=== PATIENT | female | born 1960 | race Caucasian/White ===

== ENCOUNTER 2017-01-16 08:00 | Observation (INO) ==
[2017-01-16 08:26] VITALS: BMI 32.2
[2017-01-16] MEDS: FLECAINIDE 50 MG TABLET PO SCH ×2 (10:15→21:36)
[2017-01-16] MEDS: **POM**ASPIRIN 81 MG CHEWABLE TABLET PO SCH (10:16)
[2017-01-16] MEDS: PROPRANOLOL 120 MG PO SCH (10:16)
[2017-01-16] MEDS: LURASIDONE 40 MG PO SCH (10:17)
[2017-01-16] MEDS: ALPRAZolam 0.25 MG TABLET PO SCH ×3 (10:29→21:37)
[2017-01-16] MEDS ORDERED: ALPRAZolam 0.25 MG TABLET PO SCH (12:00)
[2017-01-16] MEDS ORDERED: PROMETHAZINE 25 MG INJECTION IM PRN ×2 (12:26→13:00)
[2017-01-16] MEDS: NALBUPHINE 10 MG/ML INJECTION IVP PRN (12:50)
[2017-01-16] MEDS ORDERED: ACETAMINOPHEN 325 MG TABLET PO PRN (15:53)
--- NOTE | 2017-01-16 18:43 | Cardiology History & Physical ---
History of Present Illness Chief complaint: Palpitations HPI: This is a 56-year-old female who is here today for scheduled AAT with flecainide after being seen in the office on 01/02/2017 with c/o increased chest palpitations and CP. She states that palpitations began 6 months ago. They occur intermittently. Generally last 20 minutes. At the time she rated the symptom as severe and that it had worsened since prior visits. She described the palpations as a rapid heart beat. She states migraines make them worse.Nothing make them better. The palpations are associated with dyspnea and syncope. She also c/o chest discomfort. The pain began on . It occurs 1 time. It generally lasts 20 minutes. The patient rated as moderate. This had improved since prior visits. The patient described the pain as pressure. There are no aggravating factors. The pain is relieved with rest. The discomfort occurs at rest. It is associated with dyspnea and nausea. Pertinent negatives include diaphoresis. On admission today patient denies any palpitations, CP, N/V , SOA and/or diaphoresis. States her only pain is her migraine. Review of Systems All systems: reviewed and no additional remarkable complaints except as stated Review of systems: Headache PFSH Patient Stated Medical History Migraine Yes Glaucoma Yes: surgery Cardiac Arrhythmia Yes Hypertension Yes Other Musculoskeletal Yes: 2 rods in back Depression Yes Post Traumatic Stress Disorder Yes Other Behavioral Health Yes: agoraphobia [facility] Medical History (Last Updated 12/20/16 @ 10:56 by Faustina Dickens) Agoraphobia (Chronic Medical) Anxiety (Chronic Medical) Major depressive disorder (Chronic Medical) Migraine (Chronic Medical) PTSD (post-traumatic stress disorder) (Chronic Medical) Tachycardia (Chronic Medical) Surgical History: 1. Appendectomy: 1976. 2. Left carpal sujata release: 1989. 3. Hysterectomy: 1992. 4. Lumbar spine fusion: 2009. 5. Left TKR: 2010. 6. Right knee scope: 2013 Family History: Family History (Last Reviewed 12/20/16 @ 10:59 by Faustina Dickens) Mother Heart disease Unknown Cancer - Social History Smoking status: Light tobacco smoker Substance use type: does not use Alcohol intake frequency: does not drink Housing: house Household members: spouse service: No Does patient use chewing tobacco?: No Current residence: Apartment/Private Home Medications Home Medications Medication Instructions Recorded Confirmed Type alprazolam 0.25 mg tablet 0.25 mg PO 0900,1500,2100 tab 12/20/16 01/16/17 History lurasidone 40 mg tablet 40 mg PO DAILY tab 12/20/16 01/16/17 History propranolol ER 120 mg capsule,24 120 mg PO DAILY cap 12/20/16 01/16/17 History hr,extended release trazodone 50 mg tablet 100 mg PO HS #60 12/20/16 01/16/17 History Aspirin 1 tab PO DAILY 01/16/17 01/16/17 History LORazepam [Ativan] 1 mg IM DAILY PRN 01/16/17 01/16/17 History Nalbuphine Inj [Nubain] 20 mg IM DAILY PRN 01/16/17 01/16/17 History Promethazine Inj [Phenergan Inj] 25 mg IM DAILY PRN 01/16/17 01/16/17 History Allergies Allergy/AdvReac Type Severity Reaction Status Date / Time Sulfa (Sulfonamide Allergy Unknown RASH Verified 01/16/17 08:44 Antibiotics) hydrocodone [From Lortab] AdvReac Dizziness Verified 01/16/17 08:44 lisinopril AdvReac Cough Verified 01/16/17 08:44 Nasal sprays AdvReac Heart rate Uncoded 12/20/16 10:39 increases Exam Vital signs: Temperature 97.3 F 01/16/17 15:02 Pulse Rate 75 01/16/17 16:04 Respiratory Rate 16 01/16/17 15:02 Blood Pressure 99/76 01/16/17 15:02 Pulse Oximetry 92 01/16/17 15:02 Oxygen Delivery Method Room Air - Constitutional no acute distress, cooperative - Routine HEENT Exam Head: Present: normocephalic Eye: Present: EOMI ENT: Present: mucous membranes moist - Routine Neck Exam Absent: JVD, carotid bruit, lymphadenopathy - Routine Respiratory Exam Present: CTA bilaterally. Absent: dyspnea, respiratory distress - Routine Cardiovascular Exam Present: irregular rhythm. Absent: gallop, rubs, JVD - Routine Abdominal Exam Present: soft, normoactive bowel sounds, non distended - Routine Extremities Exam Present: no edema, pulses intact - Routine Skin Exam Present: intact, dry, warm. Absent: erythema, wounds, rash - Routine Neurological Exam Present: alert, oriented X3 - Routine Psychiatric Exam Present: normal affect, normal thought process, cooperative Results 01/16/17 09:41 01/17/17 04:19 Cardiac Enzymes 01/16/17 Range/Units 09:41 AST 15 (14-36) U/L CBC 01/16/17 Range/Units 09:41 WBC 9.8 (4.5-11.0) T/MM3 RBC 4.54 (4.00-5.20) M/MM3 Hgb 12.7 (12-16) GM/DL Hct 40.3 (36-46) % Plt Count 260 (130-400) T/MM3 Neut # 6.4 (1.8-7.7) T/MM3 Lymph # 2.6 (1-4.8) T/MM3 [place] # 0.7 (0-0.8) T/MM3 Eos # 0.1 (0-0.5) T/MM3 Baso # 0.0 (0-0.2) T/MM3 Comprehensive Metabolic Panel 01/16/17 Range/Units 09:41 Sodium 143 (134-144) MEQ/L Potassium 3.9 (3.6-5) MEQ/L Chloride 107 (98-107) MEQ/L Carbon Dioxide 31 H (22-30) MEQ/L BUN 21.0 H (7-17) MG/DL Creatinine 0.8 (0.7-1.2) MG/DL Glucose 88 (65-110) MG/DL Calcium 9.5 (8.4-10.2) MG/DL AST 15 (14-36) U/L ALT 34 (9-52) U/L Alkaline Phosphatase 52 (38-126) U/L Total Protein 6.6 (6.3-8.2) G/DL Albumin 4.1 (3.5-5.0) G/DL Intake and Output 01/16/17 01/16/17 01/16/17 06:59 14:59 22:59 Intake Total 340 / 340 480 / 480 Output Total 600 / 600 400 / 400 Balance -260 / -260 80 / 80 Intake: Oral 340 / 340 480 / 480 Output: Urine 600 / 600 400 / 400 Other: # Voids 1 Weight 93.4 kg Patient Weight 01/17/17 06:59 Weight 93.4 kg EKG interpretations - EKG EKG results cardiology: sinus rhythm (QT/JVf=102/407) Hospital Course This is a general summary of the patient's hospital course. For more details refer to the complete medical record. Hospital course: Laboratory Results - last 24 hr 01/16/17 09:41 Free T4 1.01 Time spent with patient: 25 - 35 minutes DVT Prophylaxis: SCD's Assessment and Plan (1) Palpitations Problem details: Denies at this time. Did deveolp 1st degree AV block post flecainide. Will continue flecainide 50mg BID and f/u in 1 week (at time of stress test) for a repeat EKG. Status: Acute Start Flecainide 50mg BID. Recheck EKG in AM. (2) Pericardial pain Problem details: Denies at this time. Stress test scheduled in a couple of weeks. Con't ASA 81mg. Status: Acute Denies at this time. Stress test scheduled in a couple of weeks. Con't ASA 81mg. (3) Hypertension Problem details: VSS. Continue home dose Propanolol. Status: Chronic Controlled. Continue home meds. (4) Migraines Problem details: Improved today. Con't home meds and resume care & f/u with PCP outpt. Status: Chronic Gave x1 dose IV meds per dailly regimen and PRN tylenol. Resume home meds including Depakote. F/u oupt for further tx. - Attestation Attestation Narrative: 01/18/17 15:11 Recommendation After examining the patient I agree with the above assessment. I am involved in the formulation of the patient's plan of care. Sepsis Assessment - Evaluation Sepsis screening result: No Definite Risk
[2017-01-16] MEDS: SALINE FLUSH 10ml SYRINGE IVF PRN (21:37)
[2017-01-16] MEDS ORDERED: TRAZODONE 50 MG PO SCH (22:00)
[2017-01-16] MEDS ORDERED: DIVALPROEX 500 MG PO SCH (22:00)
[2017-01-16] MEDS: ACETAMINOPHEN 325 MG TABLET PO PRN (23:43)
[2017-01-17] MEDS: FLECAINIDE 50 MG TABLET PO SCH (08:24)
[2017-01-17] MEDS: ACETAMINOPHEN 325 MG TABLET PO PRN ×2 (08:25→16:05)
[2017-01-17] MEDS: **POM**ASPIRIN 81 MG CHEWABLE TABLET PO SCH (08:28)
[2017-01-17] MEDS: LURASIDONE 40 MG PO SCH (08:28)
[2017-01-17 08:36] VITALS: BP 139/84; RESP 18; TEMP 96.9; O2SAT 96
[2017-01-17] MEDS: NALBUPHINE 10 MG/ML INJECTION IVP PRN (08:36)
[2017-01-17] MEDS: SALINE FLUSH 10ml SYRINGE IVF PRN (08:43)
[2017-01-17] MEDS: ALPRAZolam 0.25 MG TABLET PO SCH ×2 (08:55→15:25)
[2017-01-17] MEDS: PROPRANOLOL 120 MG PO SCH (09:55)
[2017-01-17 11:34] VITALS: PULSE 84
--- NOTE | 2017-01-17 15:06 | Discharge Summary ---
<Tamanna Huang R - Last Filed: 01/18/17 13:00> Discharge Information Date of admission: 01/16/17 08:03 Anticipated date of discharge: 01/17/17 Attending Physician: Paxton Perez MD Primary care physician: JULIANA SNYDER Consults: None - Discharge Diagnosis (1) Palpitations Problem Details: Denies at this time. Did deveolp 1st degree AV block post flecainide. Will continue flecainide 50mg BID and f/u in 1 week (at time of stress test) for a repeat EKG. Status: Acute (2) Pericardial pain Problem Details: Denies at this time. Stress test scheduled in a couple of weeks. Con't ASA 81mg. Status: Acute (3) Hypertension Problem Details: VSS. Continue home dose Propanolol. Status: Chronic (4) Migraines Qualifiers: Migraine type: unspecified Problem Details: Improved today. Con't home meds and resume care & f/u with PCP outpt. Status: Chronic - Laboratory Labs: 01/16/17 09:41 01/17/17 04:19 History of Present Illness HPI: 01/18/17 12:52 This is a 56-year-old female who is here today for scheduled AAT with flecainide after being seen in the office on 01/02/2017 with c/o increased chest palpitations and CP. She states that palpitations began 6 months ago. They occur intermittently. Generally last 20 minutes. At the time she rated the symptom as severe and that it had worsened since prior visits. She described the palpations as a rapid heart beat. She states migraines make them worse.Nothing make them better. The palpations are associated with dyspnea and syncope. She also c/o chest discomfort. The pain began on . It occurs 1 time. It generally lasts 20 minutes. The patient rated as moderate. This had improved since prior visits. The patient described the pain as pressure. There are no aggravating factors. The pain is relieved with rest. The discomfort occurs at rest. It is associated with dyspnea and nausea. Pertinent negatives include diaphoresis. On admission today patient denies any palpitations, CP, N/V , SOA and/or diaphoresis. States her only pain is her migraine. Hospital Course This is a general summary of the patient's hospital course. For more details refer to the complete medical record. Hospital course: Procedures Laboratory Results - last 24 hr 01/16/17 09:41 Free T4 1.01 Laboratory Tests 01/16/17 01/16/17 01/16/17 09:41 09:41 09:41 WBC 9.8 RBC 4.54 Hgb 12.7 Hct 40.3 MCV 88.8 MCH 28.0 MCHC 31.5 RDW Std Deviation 51.7 H Plt Count 260 MPV 9.9 Immature Gran % (Auto) 0.3 Neut % (Auto) 65.6 Lymph % (Auto) 26.0 [place] % (Auto) 6.6 Eos % (Auto) 1.3 Baso % (Auto) 0.2 Neut # 6.4 Lymph # 2.6 [place] # 0.7 Eos # 0.1 Baso # 0.0 Abs Immat Gran (auto) 0.03 Turbidity < 20 Sodium 143 Potassium 3.9 Chloride 107 Carbon Dioxide 31 H Anion Gap 5 BUN 21.0 H Creatinine 0.8 GFR Calculation 74 BUN/Creatinine Ratio 26 Glucose 88 Calculated Osmolality 277 Calcium 9.5 Magnesium 2.1 Total Bilirubin 0.50 Icterus Index < 2 AST 15 ALT 34 Alkaline Phosphatase 52 Total Protein 6.6 Albumin 4.1 Globulin 2.5 Albumin/Globulin Ratio 1.6 TSH 1.01 Free T4 1.01 Specimen Hemolysis < 15 01/17/17 04:19 WBC RBC Hgb Hct MCV MCH MCHC RDW Std Deviation Plt Count MPV Immature Gran % (Auto) Neut % (Auto) Lymph % (Auto) [place] % (Auto) Eos % (Auto) Baso % (Auto) Neut # Lymph # [place] # Eos # Baso # Abs Immat Gran (auto) Turbidity < 20 Sodium 139 Potassium 4.3 Chloride 106 Carbon Dioxide 28 Anion Gap 5 BUN 19.0 H Creatinine 0.8 GFR Calculation 74 BUN/Creatinine Ratio 24 Glucose 88 Calculated Osmolality 269 Calcium 9.2 Magnesium 2.1 Total Bilirubin Icterus Index < 2 AST ALT Alkaline Phosphatase Total Protein Albumin Globulin Albumin/Globulin Ratio TSH Free T4 Specimen Hemolysis 31 H Time spent with patient: discharge greater than 30 minutes DVT Prophylaxis: SCD's Exam Vital signs: Temperature 96.9 F 01/17/17 08:00 Pulse Rate 84 01/17/17 08:00 Respiratory Rate 18 01/17/17 08:00 Blood Pressure 139/84 01/17/17 08:00 Pulse Oximetry 96 01/17/17 08:00 Oxygen Delivery Method Room Air - Constitutional no acute distress, obese, cooperative - Routine HEENT Exam Head: Present: normocephalic Eye: Present: EOMI ENT: Present: mucous membranes moist - Routine Neck Exam Absent: JVD, carotid bruit, lymphadenopathy - Routine Respiratory Exam Present: CTA bilaterally. Absent: dyspnea, wheezes - Routine Cardiovascular Exam Present: RRR. Absent: no murmur, gallop, rubs, JVD - Routine Abdominal Exam Present: soft, normoactive bowel sounds, non distended, non tender - Routine Extremities Exam Present: no edema, non tender, pulses intact - Routine Skin Exam Present: intact, dry, warm. Absent: erythema, wounds, rash - Routine Neurological Exam Present: alert, oriented X3, moving all extremities - Routine Psychiatric Exam Present: normal affect, normal thought process, cooperative Results 01/16/17 09:41 01/17/17 04:19 Comprehensive Metabolic Panel 01/17/17 Range/Units 04:19 Sodium 139 (134-144) MEQ/L Potassium 4.3 (3.6-5) MEQ/L Chloride 106 (98-107) MEQ/L Carbon Dioxide 28 (22-30) MEQ/L BUN 19.0 H (7-17) MG/DL Creatinine 0.8 (0.7-1.2) MG/DL Glucose 88 (65-110) MG/DL Calcium 9.2 (8.4-10.2) MG/DL Intake and Output 01/17/17 01/17/17 01/17/17 06:59 14:59 22:59 Intake Total 300 / 300 Output Total 600 / 600 400 / 400 Balance -300 / -300 -400 / -400 Intake: Oral 300 / 300 Output: Urine 600 / 600 400 / 400 Other: Weight 94.2 kg Patient Weight 01/18/17 06:59 Weight 94.2 kg - Imaging and Cardiology EKG results: report reviewed - EKG Interpretation EKG shows: sinus rhythm (w/1st degree AV block, QT/IMk=422/418) Discharge Plan - Med Rec/Dispo Referrals/Follow Up: Paxton Perez MD [Physician] - (Follow up stress test: 01/23/2017 at 10: 30am ) Additional Instructions: Will also need an repeat EKG at time of stress test. Then f/u appointment after stress test. Prescriptions: New Flecainide [Tambocor] 50 mg PO Q12HR #60 tablet Continue Aspirin 1 tab PO DAILY LORazepam [Ativan] 1 mg IM DAILY PRN PRN Reason: Migraine Headache Promethazine Inj [Phenergan Inj] 25 mg IM DAILY PRN PRN Reason: Migraine Headache Nalbuphine Inj [Nubain] 20 mg IM DAILY PRN PRN Reason: Migraine Headache trazodone 50 mg tablet 100 mg PO HS #60 propranolol ER 120 mg capsule,24 hr,extended release 120 mg PO DAILY cap alprazolam 0.25 mg tablet 0.25 mg PO 0900,1500,2100 tab lurasidone 40 mg tablet 40 mg PO DAILY tab divalproex ER 500 mg tablet,extended release 24 hr 1,000 mg PO .qhs #60 tab - Disposition 01 Discharged Home, Self-Care <Paxton Perez - Last Filed: 01/18/17 15:12> Discharge Information Date of admission: 01/16/17 08:03 Attending Physician: Paxton Perez MD Primary care physician: JULIANA SNYDER - Discharge Diagnosis (1) Palpitations Problem Details: Denies at this time. Did deveolp 1st degree AV block post flecainide. Will continue flecainide 50mg BID and f/u in 1 week (at time of stress test) for a repeat EKG. Status: Acute (2) Pericardial pain Problem Details: Denies at this time. Stress test scheduled in a couple of weeks. Con't ASA 81mg. Status: Acute (3) Hypertension Problem Details: VSS. Continue home dose Propanolol. Status: Chronic (4) Migraines Qualifiers: Migraine type: unspecified Problem Details: Improved today. Con't home meds and resume care & f/u with PCP outpt. Status: Chronic - Laboratory Labs: 01/16/17 09:41 01/17/17 04:19 Hospital Course This is a general summary of the patient's hospital course. For more details refer to the complete medical record. Exam Vital signs: Temperature 96.9 F 01/17/17 08:00 Pulse Rate 84 01/17/17 08:00 Respiratory Rate 18 01/17/17 08:00 Blood Pressure 139/84 01/17/17 08:00 Pulse Oximetry 96 01/17/17 08:00 Oxygen Delivery Method Room Air Results 01/16/17 09:41 01/17/17 04:19 Discharge Plan - Med Rec/Dispo - Attestation Attestation Narrative: 01/18/17 15:12 Recommendation After examining the patient I agree with the above assessment. I am involved in the formulation of the patient's plan of care.
== END 2017-01-17 16:05 | disposition home or self-care (01) ==
LOC: MED
PROVIDERS: ADMIT Internal Medicine Cardiovascular Disease; ATTEND Internal Medicine Cardiovascular Disease

== ENCOUNTER 2017-05-30 07:30 | Inpatient (IN) ==
--- OUTSIDE RECORDS SUMMARY | 2017-05-30 08:01 | External Medical Summary | Clinical Summary ---
:1960 Author Organization [facility] Address [address] [place] [address] Phone Care Team Providers Name Role Phone Unavailable Primary Care Provider Unavailable Source Comments Some departments are not documenting in the electronic medical record. If you do not see the information that you expected, contact Release of Information in the Health Information Management department at [phone] for further assistance in locating additional records.[facility] Allergies Active Allergy Reactions Severity Noted Date Comments Sulfa (Sulfonamide Antibiotics) RASH Medium 03/28/2016 Hydrocodone-Acetaminophen SEE COMMENTS Low 03/28/2016 Spinning Current Medications Prescription Sig. Disp. Refills Start Date End Date Status fluoxetine (PROZAC) 20 mg Take 20 mg by Active capsule mouth daily. propranolol XL (INNOPRAN Take 120 mg by Active XL) 120 mg cp24 capsule mouth daily. LURASIDONE HCL (LATUDA PO) Take 30 mg by Active mouth daily. hydrOXYzine pamoate Take 50 mg by Active (VISTARIL) 50 mg capsule mouth three times daily as needed for Itching. traZODone (DESYREL) 50 mg Take 50 mg by Active tablet mouth at bedtime as needed for Sleep. LORAZEPAM (ATIVAN IJ) Inject 0.5 mg to Active area(s) as directed. NALBUPHINE HCL (NUBAIN IJ) Inject 10 mg to Active area(s) as directed. PROMETHAZINE HCL Inject 50 mg to Active (PHENERGAN IJ) area(s) as directed. Texalpradr-Ymthzqjpzqndp-H Take by mouth. Active aff 50-300-40 mg cap promethazine (PHENERGAN) Take 1 Tab by 30 Tab 4 03/28/2016 Active 25 mg tabletIndications: mouth every 12 Intractable chronic hours as needed migraine without aura and for Nausea or without status migrainosus Vomiting (Take with benadryl and naproxen for headache). methylPREDNIsolone (MEDROL Take 21 Tabs by 21 Tab 0 06/04/2016 Active (DIEGO)) 4 mg tablet mouth as directed. Take medication as directed on package for 6 days. Take with food. meloxicam (MOBIC) 15 mg Take 15 mg by Active tablet mouth daily. traMADol (ULTRAM) 50 mg Take 50 mg by Active tablet mouth every 6 hours as needed for Pain. Zolmitriptan 5 mg 5mg spry in one 12 mL 3 07/03/2016 Active spryIndications: Chronic nostril at migraine without aura headache onset, without status may repeat in migrainosus, not other nostril in intractable 2hrs if needed, no more than 2sprys/24hrs and 12/month divalproex (DEPAKOTE ER) Take 1 Tab by 90 Tab 3 07/03/2016 Active 500 mg ER mouth three times tabletIndications: daily. Take with MIGRAINE PREVENTION food. Indications: MIGRAINE PREVENTION ketorolac 15.75 mg/spray Apply 1 [place] to 5 Each 3 07/03/2016 Active spryIndications: Chronic each nostril as migraine without aura directed every without status 6-8 hours as migrainosus, not needed intractable, Intractable (migraine). chronic migraine without aura and without status migrainosus gabapentin (NEURONTIN) 300 Take 1 Cap by 30 Cap 0 08/15/2016 Active mg capsuleIndications: mouth at bedtime Chronic migraine without daily. aura without status migrainosus, not intractable, Intractable chronic cluster headache sumatriptan (IMITREX) 6 6mg at migraine 4 mL 2 10/26/2016 Active mg/0.5 mL crtg onset, may repeat in 2 hours if needed. No more than 2 injections in 24 hours. No more than 9 injections per month. Active Problems Problem Noted Date Intractable chronic migraine without aura and without status migrainosus 03/30 Overview: Medications failures- Indomethacin, Topamax, tramadol Current meds- Propranolol LA 120mg, Tramadol, Fioricet, Imitrex Nubain IM + Ativan + phenergan when she goes to ER. 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
[2017-05-30] MEDS ORDERED: SALINE FLUSH 10ml SYRINGE IV PRN (08:07)
[2017-05-30] MEDS ORDERED: FAMOTIDINE PB 20 MG/50 ML BAG IV ONE (08:07)
[2017-05-30] MEDS ORDERED: MELOXICAM 15 MG TABLET PO ONE (08:07)
[2017-05-30] MEDS ORDERED: ACETAMINOPHEN 500 MG TABLET PO ONE (08:07)
[2017-05-30] MEDS ORDERED: TRANEXAMIC ACID 1,000 MG in NS 100 ML IV ONE (08:07)
[2017-05-30] MEDS ORDERED: NOZIN NASAL SWAB NAS ONE ×2 (08:07→11:46)
[2017-05-30] MEDS ORDERED: ONDANSETRON 4 MG/2 ML INJECTION IVP ONE (08:07)
[2017-05-30] MEDS ORDERED: LIDOCAINE 1% (10mg/ml) 2mL INJ PF SDV ID ONE (08:07)
[2017-05-30] MEDS ORDERED: EPINEPHrine PF 0.25 MG, BUPIVACAINE 0.25% PF 30 ML, MORPHINE SULFATE 15 MG, KETOROLAC I... OPSITE ONE (08:07)
[2017-05-30] MEDS ORDERED: DEXAMETHASONE 4 MG/ML INJECTION IVP ONE (08:07)
[2017-05-30] MEDS ORDERED: METOCLOPRAMIDE 10mg/2ml INJECTION IVP ONE (08:07)
[2017-05-30 08:14] VITALS: BMI 31.0
[2017-05-30] MEDS: LR 1,000 ML IV SCH ×3 (08:27→10:20)
[2017-05-30] MEDS ORDERED: VANCOMYCIN 1,000 MG INJECTION ONE (08:27)
--- NOTE | 2017-05-30 08:55 | Anesthesia Preoperative Report ---
Anesthesia Preoperative Record - Date and Time Date: 05/30/17 Preoperative Diagnosis: Rt TKA M17.11 primary osteoarthritis Proposed Procedure: right knee arthroplasty NPO Since Date: 05/29/17 NPO Since Time: 23:00 Allergies/Adverse Reactions: Allergies Allergy/AdvReac Type Severity Reaction Status Date / Time Sulfa (Sulfonamide Allergy Unknown RASH Verified 05/30/17 08:20 Antibiotics) hydrocodone [From Lortab] AdvReac Dizziness Verified 05/30/17 08:20 lisinopril AdvReac Cough Verified 05/30/17 08:20 Nasal sprays AdvReac Heart rate Uncoded 05/30/17 08:20 increases - Vital Signs Vital Signs: Temperature 97.7 F 05/30/17 08:13 Pulse Rate 86 05/30/17 08:13 Respiratory Rate 18 05/30/17 08:13 Blood Pressure 123/88 05/30/17 08:13 Pulse Oximetry 96 05/30/17 08:13 Height and Weight: Height 1.73 m Weight 92.7 kg Body Mass Index 31.0 - Medications Inpatient Medications: Current Medications Cefazolin Sodium (Kefzol) 2 g IVP PREOP ONE Stop: 05/30/17 09:01 Lactated Ringer's (Lactated Ringers) 1,000 mls @ 50 mls/hr IV .Q20H BRUCE Last Admin: 05/30/17 08:27 Dose: 50 mls/hr Sodium Chloride (Iv Flush) 10 - 80 ml IV PRN PRN PRN Reason: Flushing Home Medications: Home Medications Medication Instructions Recorded Confirmed Type Inderal LA (propranolol ER) 120 mg 120 mg PO DAILY cap 12/20/16 05/30/17 History capsule,24 hr Xanax (alprazolam) 0.25 mg tablet 0.25 mg PO 0900,1500,2100 tab 12/20/16 History lurasidone 40 mg tablet 40 mg PO HS tab 12/20/16 05/30/17 History trazodone 50 mg tablet 100 mg PO HS #60 12/20/16 05/30/17 History Aspirin 81 mg PO DAILY 01/16/17 05/30/17 History LORazepam [Ativan] 1 mg IM DAILY PRN 01/16/17 05/30/17 History Nalbuphine Inj [Nubain] 20 mg IM DAILY PRN 01/16/17 05/30/17 History Promethazine Inj [Phenergan Inj] 25 mg IM DAILY PRN 01/16/17 05/30/17 History Divalproex ER [Depakote ER] 1,500 mg PO HS 05/24/17 05/30/17 History Losartan [Cozaar] 50 mg PO DAILY 05/24/17 05/30/17 History Tramadol [Ultram] 50 mg PO QID PRN 05/28/17 05/30/17 History Potassium Chloride [Micro-K] 10 meq PO DAILY 05/30/17 05/30/17 History - Medical History Respiratory: DENIES: Sleep Apnea Cardiovascular: Reports: Arrhythmia (hx tachycardia), Hypertension Gastrointestional: Reports: Ulcer (about 20 yrs ago) Neuro/Musculoskeletal: Reports: HX.MS.OSAR, Back Problems, Depression (anxiety ) , Other (2 rods in back) - Surgical History HEENT Surgeries: Reports: Eye Surgery (glaucoma) GI Surgery/Treatments: Reports: Appendectomy (1976) Surgery/Treatment: REPORT: Other (blood in urine) Musculoskeletal Surgery/Tx: Reports: Carpal Tunnel Release (left), Knee Arthroscopy (right), Total Knee Replacement (left) Reproductive Surgery/Treatment: Reports: Hysterectomy (1991) Anesthesia Reactions: None Hx Family Anesthesia Reaction: No - Social History Smoking Status: Former smoker Hx Chewing Tobacco Use: No Substance Use Type: does not use Alcohol Intake Frequency: holidays/special occasions only - Pertinent Findings EKG: Sinus Rhythm - Physical Exam Respiratory Exam: Present: lungs clear, bilateral breath sounds equal Cardiovascular Exam: Present: regular rate and rhythm, no murmur - Airway Assessment Mallampati Score: II TMD: 3 Fingerbreadths Overall Assessment: no airway concerns - ASA ASA Score: 2 - Plan Anesthesia: General Inhalation Gases Regional/Trunk Block: Spinal Peripheral Nerve Block: Saphenous-Right - Discussion Discussion: Discussed risks/options/alternatives of anesthesia and questions answered. Patient consents. Nursing pain assessment noted. Attestation Statement: Prior to the delivery of any anesthetic medication, I examined the patient, developed the plan, obtained the patient's consent and discussed the risk and benefits of the procedure with the patient/guardian. - Additional Information Seen by Anesthesia: Yes
[2017-05-30] MEDS ORDERED: CEFAZOLIN 1 G INJECTION IVP ONE (09:00)
[2017-05-30] MEDS ORDERED: MIDAZOLAM 2mg/2ml INJECTION ONE (09:03)
[2017-05-30] MEDS ORDERED: FentaNYL 100 MCG/2 ML INJECTION ONE ×4 (09:04→11:05)
[2017-05-30] MEDS ORDERED: LIDOCAINE 2% JELLY Tube 30ml ONE (09:19)
[2017-05-30] MEDS ORDERED: KETAMINE 500 MG/10 ML INJECTION ONE (09:21)
[2017-05-30] MEDS ORDERED: EPHEDRINE 50mg/ml INJECTION ONE (09:36)
[2017-05-30] MEDS ORDERED: VANCOMYCIN 1,000 MG INJECTION IAR ONE (09:47)
[2017-05-30] MEDS ORDERED: ROPIVACAINE 0.5% (5mg/ml) 30ml INJ ONE (10:43)
[2017-05-30] MEDS ORDERED: ONDANSETRON 4 MG/2 ML INJECTION ONE (10:46)
--- NOTE | 2017-05-30 11:06 | Operative Note ---
- Procedure Preoperative Diagnosis: Right knee primary degenerative joint disease Postoperative Diagnosis: Same as preoperative diagnosis. Surgeon: Ely Villagran MD Gun Numberer: German Jarvis Complications: None. Anesthesia: Spinal. Estimated Blood Loss: See Anesthesia Record. Fluids: Please see Anesthesia Record. Description of Procedure: Mrs. Watts and her right knee were identified and marked in the preoperative holding area. She was brought back to the operating suite after a saphenous nerve block was placed in the preoperative holding area. Spinal anesthetic was attempted but was unsuccessful so she was placed under general anesthesia. She was placed supine on the operating table. The right lower extremity was prepped and draped in my normal sterile fashion. Timeout was performed. The [employer] robot was used during the surgery. She had a fixed varus deformity. A standard anterior midline incision followed by medial parapatellar arthrotomy was performed. Anterior fat pad and meniscus were removed. The patella was resurfaced to a size 29. Tibial and femoral arrays were placed both within the original incision. Checkpoints were then placed both in the femur and the tibia. The bone was then registered with the [employer] robot. Osteophytes were removed and gaps were captured both 90 and 0 with correction. We balanced her knee with 70 mm gaps in extension and a 2 mm gaps in flexion. The [employer] robotic arm was then used to assist with the bone cuts. Posterior osteophytes and remaining meniscus were removed. Trial components were placed. We used a 4 femur and a 4 tibia with a [] mm spacer. She tracked well and was well balanced throughout range of motion. The tibia was then stamped at the proper rotation. The tibia was press fit as well as the femoral component. The patella component was also press-fit. The anterior chamfer on the femur showed some space between the component and the bone. For this reason I removed the femoral component and instead we cemented the femoral component. The tourniquet was inflated and the femoral bone was cleaned from blood and then dried before cementing. The cement was allowed to cure with the knee in extension. The tourniquet was let down and hemostasis obtained with electrocautery. The knee was ranged one more time to ensure good stability, balance and patellar tracking. 1 g of vancomycin powder was then placed into the knee joint. The capsulotomy was then closed with #1 Vicryl. I then left my assistant controller to close the subcutaneous tissue with 2-0 Vicryl. Running 4-0 Monocryl will be used in the subcuticular layer. Dermabond will be used on the skin followed by sterile dressing. After drapes are removed patient will be taken to recovery room under the care of anesthesia.
[2017-05-30] MEDS ORDERED: DiphenhydrAMINE 25 MG CAPSULE PO PRN (11:46)
[2017-05-30] MEDS ORDERED: DiphenhydrAMINE 50 MG/ML INJECTION IVP PRN (11:46)
[2017-05-30] MEDS ORDERED: NAPROXEN 220 MG TABLET PO PRN (11:46)
--- NOTE | 2017-05-30 11:57 | XRay Report ---
Indication: postoperative image PROCEDURE: XR knee RT 2V: Encounter: Initial Comparison: May 20, 2017 Findings: Postoperative changes of right total knee replacement are seen. There is expected postoperative subcutaneous gas. No evidence of hardware failure or acute fracture. No retained radiopaque surgical instruments or sponges. Overlying material causing artifact. Impression: New right total knee prosthesis without evidence of immediate complication. .
[2017-05-30] MEDS: NS 1,000 ML IV SCH (12:01)
--- NOTE | 2017-05-30 12:09 | Anesthesia Postoperative Note ---
- Date and Time Date: 05/29/17 Time: :17 - Status Patient Participated in Evaluation: Patient Participated in Person Vital Signs: Temperature 98.1 F 05/30/17 11:47 Pulse Rate 79 05/30/17 11:45 Respiratory Rate 19 05/30/17 11:45 Blood Pressure 132/65 05/30/17 11:45 Pulse Oximetry 96 05/30/17 11:45 Respiratory Function: Airway Patent Cardiovascular Function: Regular Pulse EKG: Sinus Rhythm Mental Status: Alert and Oriented Pain Intensity: 2 Hydration: IV Infusing Complications During Recover: None Apparent - Follow-Up Instructions Instructions: Per Surgeon
--- NOTE | 2017-05-30 12:11 | Anesthesia Procedure Note ---
Peripheral Nerve Blockade - Procedure Physician: Lennox Villagran MD Date: 05/30/17 Surgical Procedure: right total knee arthroplasty Discussion: Discussed risks/options/alternatives of anesthesia and questions answered. Patient consents. Nursing pain assessment noted. Block Start: 11:11 Block Stop: 11:14 Indication: Post-Operative Pain Approach: Right Side Confirmed Position: Supine Patient: Consent, Risks/Benefits Discussed, Post Block Act. Discussed IV Sedation: No Initial Vital Signs: Temperature 97.7 F 05/30/17 08:13 Temperature Source Oral 05/30/17 08:13 Pulse Rate 86 05/30/17 08:13 Respiratory Rate 18 05/30/17 08:13 Blood Pressure 123/88 05/30/17 08:13 Blood Pressure Mean 99 05/30/17 08:13 Blood Pressure Position Sitting 05/30/17 08:13 Pulse Oximetry 96 05/30/17 08:13 Oxygen Delivery Method 05/30/17 08:13 Post Vital Signs: Temperature 98.1 F 05/30/17 11:47 Pulse Rate 79 05/30/17 11:45 Respiratory Rate 19 05/30/17 11:45 Blood Pressure 132/65 05/30/17 11:45 Pulse Oximetry 96 05/30/17 11:45 Initial Pain Pain Score: 2 Post Block Pain Score: 2 Prep: Chlorhexadine/ETOH Ultrasound Used?: Yes - Injectate Ropivacaine (%): 0.5 Ropivacaine (mL): 15 Injection: Injection made incrementally with constant monitoring and aspiration every ml
[2017-05-30] MEDS: TRAMADOL 50 MG TABLET PO PRN (13:15)
[2017-05-30] MEDS: ACETAMINOPHEN 325 MG TABLET PO SCH ×3 (13:15→20:30)
[2017-05-30] MEDS: ALPRAZolam 0.25 MG TABLET PO SCH ×2 (15:52→20:30)
[2017-05-30] MEDS: NOZIN NASAL SWAB NAS SCH ×2 (16:47→21:29)
[2017-05-30] MEDS: DEXAMETHASONE 20 MG/5 ML INJECTION IVP SCH (16:47)
[2017-05-30] MEDS: CEFAZOLIN 2 G in NS 100 ML IV SCH (16:50)
[2017-05-30] MEDS: PROMETHAZINE 25 MG INJECTION IM PRN (17:54)
[2017-05-30] MEDS: NALBUPHINE 10 MG/ML INJECTION IM PRN (17:54)
[2017-05-30] MEDS: LORazepam 1 MG TABLET PO PRN ×2 (17:55→22:13)
[2017-05-30] MEDS: ASPIRIN *EC* 81 MG TABLET PO SCH (20:31)
[2017-05-30] MEDS: DOCUSATE SODIUM 100 MG CAPSULE PO SCH (20:31)
[2017-05-30] MEDS: FLECAINIDE 50 MG TABLET PO SCH (20:32)
[2017-05-30] MEDS ORDERED: TRAZODONE 100 MG TABLET PO SCH (21:00)
[2017-05-30] MEDS ORDERED: SENNOSIDES 8.6 MG TABLET PO SCH (21:00)
[2017-05-30] MEDS ORDERED: LURASIDONE 40mg TABLET PO SCH (21:00)
[2017-05-31] MEDS: DEXAMETHASONE 20 MG/5 ML INJECTION IVP SCH (01:03)
[2017-05-31] MEDS: CEFAZOLIN 2 G in NS 100 ML IV SCH (01:03)
[2017-05-31] MEDS: NS 1,000 ML IV SCH (01:04)
[2017-05-31] MEDS: TRAMADOL 50 MG TABLET PO PRN ×2 (01:05→08:17)
[2017-05-31 04:21] VITALS: RESP 16; TEMP 98.2
[2017-05-31] MEDS: NOZIN NASAL SWAB NAS SCH (06:30)
--- NOTE | 2017-05-31 07:31 | Orthopedic Progress Note ---
Date: Subjective/Severity of Illness: Mala reports her knee pain is controlled at this time. She is still having a headache which is common for her. She took Nubain / Phenergan last evening for this. Denies CP, cough, SOA or other complaints. No N/v. She has been up with good tolerance. She reports that getting up was easier than she expected. No other concerns at this time. Orthopedic Objective PO Vital signs: Temperature 98.2 F 05/31/17 04:00 Pulse Rate 93 05/31/17 04:00 Respiratory Rate 16 05/31/17 04:00 Blood Pressure 130/69 05/31/17 04:00 Pulse Oximetry 96 05/31/17 05:00 Height and Weight: Height 5 ft 8 in Weight 204 lb 5.896 oz Body Mass Index 31.0 - Constitutional General Appearance: Present: alert, cooperative, no acute distress - Respiratory Exam Present: non-labored - Cardiovascular Exam Present: pedal pulses intact Capillary Refill: < 2-3 Seconds - Extremities Exam Extremities: Present: pulses intact. Absent: calf tenderness - Surgical Site Incision: Mepilex dressing intact, bloody drainage present (Two very small drops on the dressing.) - Integumentary Exam Present: pink, warm, dry - Neurological Exam Present: no deficits - Psychiatric Exam Present: alert, oriented - Labs Result Diagrams: 05/31/17 04:04 05/31/17 04:04 Abnormal lab results 05/31/17 05/31/17 Range/Units 04:04 04:04 Hgb 10.4 L (12-16) GM/DL Hct 33.6 L (36-46) % Glucose 139 H (65-110) MG/DL H & H 05/31/17 Range/Units 04:04 Hgb 10.4 L (12-16) GM/DL Hct 33.6 L (36-46) % Orthopedic Assessment and Plan (1) Primary osteoarthritis of right knee Status: Acute Assessment and Plan: Current anti-coagulation protocol for VTE prophylaxis. SCD's. PT/OT services to improve independent function. Discharge Planning per Case Management. Expect discharge later today if doing well. - Anticoagulation Therapy Anticoagulation: ASA 81 mg PO BID x6 weeks Hospital Course Summary Disclaimer: The visit summary below is not to be considered part of the above Progress Note.
[2017-05-31] MEDS ORDERED: FALL RISK - PHARMACY CONSULT XX ONE (08:16)
[2017-05-31] MEDS ORDERED: POLYETHYL GLYCOL 3350 17gm PACKET PO SCH (09:00)
[2017-05-31] MEDS ORDERED: LOSARTAN 50 MG TABLET PO SCH (09:00)
[2017-05-31] MEDS: ASPIRIN *EC* 81 MG TABLET PO SCH (09:00)
[2017-05-31] MEDS ORDERED: PROPRANOLOL LA 120 MG CAPSULE PO SCH (09:00)
[2017-05-31] MEDS: ALPRAZolam 0.25 MG TABLET PO SCH (09:01)
[2017-05-31] MEDS: ACETAMINOPHEN 325 MG TABLET PO SCH ×2 (09:01→12:43)
[2017-05-31] MEDS: FLECAINIDE 50 MG TABLET PO SCH (09:03)
[2017-05-31] MEDS: DOCUSATE SODIUM 100 MG CAPSULE PO SCH (09:04)
[2017-05-31] MEDS ORDERED: SENNOSIDES 8.6 MG TABLET PO PRN (09:25)
[2017-05-31] MEDS: PROMETHAZINE 25 MG INJECTION IM PRN (12:24)
[2017-05-31] MEDS: NALBUPHINE 10 MG/ML INJECTION IM PRN (12:24)
--- NOTE | 2017-05-31 13:02 | Discharge Summary ---
Orthopedic Discharge Info Date of admission: 05/30/17 07:55 Primary care physician: JULIANA SNYDER Attending Physician: Lennox Villagran MD Consults: 05/30/17 08:07 Consult to Anesthesiology [CONS] Routine Reason For Exam: Preoperative Assessment 05/30/17 11:46 Case Management Consult [CONS] Routine Reason For Exam: Discharge Planning DME-Walker [CONS] Routine Height: 5 ft 8 in Weight: 204 lb 5.896 oz Total Joint Outpatient Therapy [CONS] Routine Comment: Remove dressing in 2 weeks - Discharge Diagnosis (1) Primary osteoarthritis of right knee Status: Acute - Procedures Procedures: Procedures RT Total knee replacement (11/25/12) - Laboratory Result Diagrams: 05/31/17 04:04 05/31/17 04:04 Laboratory: Abnormal lab results 05/31/17 05/31/17 Range/Units 04:04 04:04 Hgb 10.4 L (12-16) GM/DL Hct 33.6 L (36-46) % Glucose 139 H (65-110) MG/DL H & H 05/31/17 Range/Units 04:04 Hgb 10.4 L (12-16) GM/DL Hct 33.6 L (36-46) % Orthopedic Discharge HPI - HPI Comments This patient was admitted for elective surgical tx of end stage degenerative joint disease that failed to respond to conservative treatment. Further details of this is found in the admission H&P. Orthopedic Hospital Course Hospital course: 05/31/17 12:59 After appropriate preoperative clearance and signing of operative consent, the patient was given IV antibiotics, according to orthopedic protocol. The patient was taken to the operating room and underwent elective joint arthroplasty. Following surgery, antibiotics were discontinued less than 24 hours according to joint protocol. Appropriate anticoagulants were initiated and SCDs added for DVT prevention. The dressing was clean, dry, and intact. Pain control was obtained via multimodal approach. Bowel motivation addressed with scheduled and PRN medications. Early mobilization was initiated through PT services. Discharge arrangements made by a collaborative effort between the patient and Case Management. Follow-up is scheduled in 2-3 weeks. Discharge instructions given by orthopedic providers and nursing staff at discharge. Discharge condition was good. Ongoing care required?: No Discharge Plan - Med Rec/Dispo Referrals/Follow Up: German Jarvis PA [Physician Endoscopy Tech] - 06/21/17 9:30 am Prescriptions: New Aspirin *EC* [Ecotrin] 81 mg PO BID tab PEG 3350 17gm PACKET [Miralax] 17 gm PO DAILY packet Tramadol [Ultram] 50 - 100 mg PO Q6H PRN #60 tab PRN Reason: Pain Acetaminophen [Tylenol] 650 mg PO QID tab Naproxen [Aleve] 440 mg PO BID PRN tab PRN Reason: Pain Continue LORazepam [Ativan] 1 mg IM DAILY PRN PRN Reason: Migraine Headache Flecainide [Tambocor] 50 mg PO Q12HR #60 tab Losartan [Cozaar] 50 mg PO DAILY Promethazine Inj [Phenergan Inj] 25 mg IM DAILY PRN PRN Reason: Migraine Headache Nalbuphine Inj [Nubain] 20 mg IM DAILY PRN PRN Reason: Migraine Headache Divalproex ER [Depakote ER] 1,500 mg PO HS Potassium Chloride [Micro-K] 10 meq PO DAILY trazodone 50 mg tablet 100 mg PO HS #60 Inderal LA (propranolol ER) 120 mg capsule,24 hr 120 mg PO DAILY cap Xanax (alprazolam) 0.25 mg tablet 0.25 mg PO 0900,1500,2100 tab lurasidone 40 mg tablet 40 mg PO HS tab Discontinued Aspirin 81 mg PO DAILY Tramadol [Ultram] 50 mg PO QID PRN PRN Reason: Pain - Disposition 01 Discharged Home, Self-Care - Dismissal Complete Discharge Instructions are:: Complete
[2017-05-31 13:38] VITALS: BP 123/69; PULSE 84; O2SAT 95
[2017-06-01] MEDS ORDERED: BISACODYL 10 MG SUPPOSITORY RECTALLY SCH (20:00)
== END 2017-05-31 14:05 | disposition home health service (06) | DRG 470 ==
LOC: SRG 07:55
PROVIDERS: ADMIT Orthopaedic Surgery; ATTEND Orthopaedic Surgery